=== PATIENT | female | born 1935 | race Two or more races ===

== ENCOUNTER 2020-06-07 22:21 | Emergency (ER) | payer MEDICARE, OTHER ==
[~2020-06-07] VITALS: Ht 162.6 cm; Wt 61.0 kg
--- NOTE | 2020-06-07 22:36 | NUR ---
[id number] FROM [facility] C/O BACK PAIN S/P UNWITNESSED GLF +BLOOD THINNER. PT AAOX2, VSS. RR EVEN & UNLABORED. DENIES CP, SOB, DIZZINESS, N/V AT THIS TIME. AWAITING EVAL BY THOM. WILL CONT TO MONITOR.
--- NOTE | 2020-06-07 22:39 | NUR ---
DR. ELIAS AT FOR EVAL.
[2020-06-07 23:06] LABS: BASOPHILS % (AUTO) 0.6 % (0.0-2.0); HEMATOCRIT 31 % (33-45); HEMOGLOBIN 9.7 g/dL (11.5-14.8); LYMPHOCYTES # (AUTO) 1.4 /CMM (0.8-4.8); LYMPHOCYTES % (AUTO) 22.8 % (20.0-44.0); MEAN CORPUSCULAR HGB CONC 32 g/dl (31.0-36.0); MEAN CORPUSCULAR VOLUME 95 fL (82-100); MONOCYTES # (AUTO) 0.3 /CMM (0.1-1.30); MONOCYTES % (AUTO) 5.4 % (2.0-12.0); NEUTROPHILS # (AUTO) 4.2 /CMM (1.8-8.9); NEUTROPHILS % (AUTO) 69.2 % (43.0-81.0); PLATELET COUNT (AUTO) 221 /CMM (150-450); RED BLOOD CELL COUNT(AUTO) 3.25 MIL/uL (4.0-5.2); WHITE BLOOD COUNT (AUTO) 6.1 K/uL (4.3-11.0)
[2020-06-07 23:18] LABS: CALCIUM, SERUM 9.4 mg/dL (8.5-10.1); CREATININE 1.2 mg/dL (0.6-1.3); POTASSIUM 4.9 mmol/L (3.5-5.1)
--- NOTE | 2020-06-08 00:37 | NUR ---
[facility] ambulance called for BLS transport. ETA [phone]
[2020-06-08] MEDS ORDERED: WARFARIN SODIUM 2.5 MG TABLET ONE (00:42)
[2020-06-08] MEDS ORDERED: WARFARIN SODIUM 1 MG TABLET PO ONE (01:00)
--- NOTE | 2020-06-08 01:27 | NUR ---
[facility] AT BED SIDE FOR COMPUTER METEOROLOGIST. REPORT GIVEN
--- NOTE | 2020-06-08 01:35 | NUR ---
[facility] AND REPORT GIVEN TO KALE SAEED PT'S DISCHARGE.
--- NOTE | 2020-06-08 01:36 | NUR ---
PT WAS PIACKED UP BY [facility] VIA GURNEY AND WAS TANSFERRED BACK TO THE ASSISTED LIVING.
[2020-06-08 01:39] VITALS: BP 147/61
== END 2020-06-08 01:39 ==
LOC: ER 22:24
DX: M54.5 Low back pain (principal); M54.6 Pain in thoracic spine; F03.90 Unspecified dementia, unspecified severity, without behavioral disturbance, psychotic disturbance, mood disturbance, and anxiety; Z98.890 Other specified postprocedural states; Z88.0 Allergy status to penicillin; Z88.2 Allergy status to sulfonamides; Z88.8 Allergy status to other drugs, medicaments and biological substances; Z79.84 Long term (current) use of oral hypoglycemic drugs; W18.39XA Other fall on same level, initial encounter; Y93.89 Activity, other specified; Y92.89 Other specified places as the place of occurrence of the external cause; Y99.8 Other external cause status
CPT/HCPCS: 36415; 70450-TC; 72125-TC; 72128-TC; 72131-TC; 73521; 80048-TC; 82550-TC; 85025-TC; 85730-TC